=== PATIENT | female | born 1930 | race Caucasian/White ===

== ENCOUNTER 2016-08-11 13:24 | Inpatient (IN) | payer MEDICARE, BC ==
[~2016-08-11] VITALS: Ht 144.8 cm; Wt 59.0 kg
[~2016-08-11 13:24] MED LIST: AMBIEN PO; ATOR80TA PO; CLON0.1T PO; LOSA1TAB36 PO; TRAMADOL PO
[2016-08-11] MEDS ORDERED: ESZO3TAB10 PO (13:39)
[2016-08-11] MEDS ORDERED: ALPR1TAB2 PO (13:39)
[2016-08-11] MEDS ORDERED: AMLO1TAB65 PO (13:39)
[2016-08-11] MEDS ORDERED: ONDA4TAB8 PO (13:43)
[2016-08-11] MEDS ORDERED: ONDANSETRON 4 MG/2 ML VIAL IV ONE (14:00)
[2016-08-11] MEDS ORDERED: IV NORMAL SALINE 500 ML BAG IV ONE (14:00)
[2016-08-11 14:23] LABS: BASOPHILS % (AUTO) 0.3 % (0.0-2.0); EOSINOPHILS # (AUTO) 0.1 K/uL (0.0-0.7); EOSINOPHILS % (AUTO) 0.6 % (0.0-7.0); HEMATOCRIT 34.7 % (37.0-47.0); HEMOGLOBIN 12.1 g/dL (12.0-16.0); LYMPHOCYTES # (AUTO) 1.6 K/uL (0.8-4.8); LYMPHOCYTES % (AUTO) 17.7 % (20.5-51.5); MEAN CORPUSCULAR HEMOGLOBIN 31.2 uug (27.0-31.0); MEAN CORPUSCULAR HGB CONC 35 g/dL (32.0-37.0); MEAN CORPUSCULAR VOLUME 89.5 fL (81.0-99.0); MONOCYTES # (AUTO) 0.5 K/uL (0.1-1.30); MONOCYTES % (AUTO) 4.9 % (0.0-11.0); NEUTROPHILS # (AUTO) 7.1 K/uL (1.8-8.9); NEUTROPHILS % (AUTO) 76.5 % (38.5-71.5); PLATELET COUNT (AUTO) 212 K/uL (150-450); RED BLOOD CELL COUNT(AUTO) 3.87 MIL/uL (4.20-5.40); RED CELL DISTRIBUTION WIDTH 12.4 % (11.5-14.5); WHITE BLOOD COUNT (AUTO) 9.3 K/uL (4.0-11.2)
[2016-08-11] MEDS ORDERED: ONDANSETRON 4 MG/2 ML VIAL ONE (14:24)
--- NOTE | 2016-08-11 14:25 | NUR ---
PT IS IN ROOM #2A. DR MATIAS EVALUATED THE PT.
[2016-08-11 14:29] LABS: CALCIUM 9.5 mg/dL (8.5-10.1); CREATININE 1.1 mg/dL (0.6-1.3); POTASSIUM 4.3 mmol/L (3.5-5.1)
[2016-08-11 14:35] LABS: ALBUMIN 3.9 g/dL (3.4-5.0); BILIRUBIN,TOTAL 0.5 mg/dL (0.2-1.0)
[2016-08-11] MEDS ORDERED: IOHEXOL 300MG/ML 100 ML INFUS..BTL ONE (14:41)
[2016-08-11] MEDS ORDERED: IV NORMAL SALINE 250 ML IV ONE (14:41)
[2016-08-11 15:23] LABS: *BILIRUBIN,URIN NEGATIVE (NEGATIVE); *BLOOD, URINE 1+ (NEGATIVE); *CLARITY,URINE CLOUDY (CLEAR); *KETONES,URINE NEGATIVE (NEGATIVE); *PROTEIN,URINE 2+ (NEGATIVE); *UROBILINOGEN,URINE 0.2 E.U./dl (NORMAL); LEUKOCYTE ESTERASE ,URINE 2+ (NEGATIVE); NITRITE, URINE NEGATIVE (NEGATIVE); PH,URINE 5.5 (5.0-8.0); UGLUCOSE NEGATIVE (NEGATIVE)
[2016-08-11 15:47] LABS: *COLOR,URINE YELLOW (YELLOW); BACTERIA,URINE MANY /HPF (NONE SEEN); SQUAMOUS EPITHELIAL CELL,UR MODERATE /HPF (NONE SEEN); WBC,URINE 50-80 /HPF (0-3)
[2016-08-11 15:48] LABS: MUCUS,URINE MODERATE /LPF (0-FEW); URIC ACID CRYSTALS,URINE FEW /HPF (NONE SEEN)
[2016-08-11] MEDS ORDERED: METRONIDAZOLE 500 MG/NS 100 ML PIGGYBACK IV ONE (16:00)
[2016-08-11] MEDS ORDERED: CEFTRIAXONE 1 G in IV DEXTROSE 5% 50 ML IV ONE (16:00)
[2016-08-11] MEDS ORDERED: CEFTRIAXONE 1 G VIAL ONE (16:13)
[2016-08-11] MEDS ORDERED: METRONIDAZOLE 500 MG/NS 100ML 100 ML IV ONE (16:13)
--- NOTE | 2016-08-11 16:48 | NUR ---
REPORT WAS GIVEN TO JAVA MANAGER. PT WAS TRANSFERED TO TELEMETRY ROOM #209.
--- NOTE | 2016-08-11 17:00 | NUR ---
Received patient via gurney with 2 people assist from ER. V/s checked and recorded. patient alert and oriented person, place and time able to verbalize needs, breathing unlabored. Patient complained of pain on the left leg and hip and right eye. Will notify the MD.
[2016-08-11 18:00] VITALS: BP 145/80
--- NOTE | 2016-08-11 18:39 | NUR ---
Herrera LYNCH. Awaiting for Dr. Fairbanks's admitting orders.
--- NOTE | 2016-08-11 18:39 | NUR ---
Admitting orders received.
--- NOTE | 2016-08-11 18:52 | NUR ---
Admitting orders received for patient. T.O. orders faxed to pharmacy.
[2016-08-11] MEDS ORDERED: ALPRAZOLAM 0.5 MG TABLET PO PRN (19:30)
[2016-08-11 20:00] VITALS: BP 133/64
[2016-08-11] MEDS: ZOLPIDEM 5 MG TABLET PO PRN (20:17)
[2016-08-11] MEDS ORDERED: HOME MED MISCELLANEOUS PO SCH (21:00)
[2016-08-11] MEDS ORDERED: ZOLPIDEM 5 MG TABLET PO ONE (21:15)
[2016-08-11] MEDS ORDERED: ZOLPIDEM 5 MG TABLET ONE (21:22)
[2016-08-11] MEDS ORDERED: MORPHINE SULFATE 2 MG/1 ML DISP.SYRIN ONE (21:24)
[2016-08-11] MEDS: MORPHINE SULFATE 2 MG/1 ML DISP.SYRIN IV PRN (21:26)
[2016-08-12] VITALS: BP 139/66
[2016-08-12 04:00] VITALS: BP 137/63
--- NOTE | 2016-08-12 06:57 | NUR ---
END OF SHIFT NOTE: PT WAS GIVEN AMBIEN X 2 PER PT REQUEST.PT SLEPT INTERMITTENTLY AFTER. GIVEN MS PRN FOR C/O ABDOMINAL PAIN AND WAS HELPFUL. TURNED AND REPOSITIONED. SAFETY MAINTAINED. CALL LIGHT WITHIN REACH.
--- NOTE | 2016-08-12 07:10 | NUR ---
PT AWAKE IN BED, NO SIGNS OF DISTRESS, COMPLAINTS OF PAIN 8/10 IN ABDOMEN, WILL CHECK ORDERS FOR PAIN MEDICATION, ALL SAFETY AND COMFORT MEASURES ATTENDED TOO, CALL LIGHT IN REACH
[2016-08-12] MEDS: MORPHINE SULFATE 2 MG/1 ML DISP.SYRIN IV PRN ×2 (07:40→15:13)
[2016-08-12] MEDS ORDERED: HOME MED MISCELLANEOUS PO SCH (09:00)
--- NOTE | 2016-08-12 09:00 | NUR ---
DR CALLAWAY IN ROOM WITH PATIENT
[2016-08-12] MEDS: CEFTRIAXONE 1 G in IV DEXTROSE 5% 50 ML IV SCH (09:42)
[2016-08-12] MEDS: ENOXAPARIN SODIUM 30 MG/0.3 ML DISP.SYRIN SUBCUT SCH (09:42)
[2016-08-12] MEDS: LOSARTAN POTASSIUM 50 MG TABLET PO SCH (09:45)
[2016-08-12] MEDS: AMLODIPINE 10 MG TABLET PO SCH (09:45)
[2016-08-12] MEDS: METRONIDAZOLE 500 MG TABLET PO SCH ×3 (09:45→21:10)
[2016-08-12] MEDS: ALPRAZOLAM 0.5 MG TABLET PO PRN (11:51)
[2016-08-12 12:23] VITALS: BP 144/64
[2016-08-12] MEDS: ONDANSETRON ODT 4 MG TAB.RAPDIS SL PRN (14:50)
--- NOTE | 2016-08-12 14:54 | NUR ---
PT STATING VERY NAUSEATED, ZOFRAN GIVEN PER ORDERS, WILL CONTINUE TO MONITOR CLOSELY.
[2016-08-12 16:46] VITALS: BP 112/55
--- NOTE | 2016-08-12 18:00 | NUR ---
PT AWAKE IN BED, NO CHANGES NOTED THROUGHOUT SHIFT. ALL SAFETY AND COMFORT MEASURES MAINTAINED THROUGHOUT SHIFT. CALL LIGHT IN REACH
--- NOTE | 2016-08-12 19:00 | NUR ---
PATIENT ALERT ORIENTED, ABLE TO MAKE NEEDS KNOWN ASSIST TO BATHROOM FOR BLADDER ELIMINATIONS, COMPLAIN OF INSOMNIA, ASSESS FOR PAIN, NO COMPLAIN OF PAIN AT THIS TIME.
[2016-08-12 20:00] VITALS: BP 129/58
--- NOTE | 2016-08-12 20:12 | NUR ---
SEEN BY PSYCHIATRIST DR WAGNER.. WITH ORDER TRAZODONE FOR DEPRESSION,
[2016-08-12] MEDS: TRAZODONE 50 MG TABLET PO SCH (20:47)
[2016-08-12] MEDS: ZOLPIDEM 5 MG TABLET PO PRN (21:11)
[2016-08-13 04:00] VITALS: BP 121/56
[2016-08-13] MEDS: METRONIDAZOLE 500 MG TABLET PO SCH ×3 (05:37→21:02)
--- NOTE | 2016-08-13 05:46 | NUR ---
PATIENT AWAKE BUT FORGETFUL, SLEPT MOST OF THE NIGHT, GLORIAIEN PARTIALLY HELPS THE PATIENT, NO ADVERSE REACTION NOTED FROM ABX.
[2016-08-13 06:57] LABS: BASOPHILS % (AUTO) 0.3 % (0.0-2.0); EOSINOPHILS % (AUTO) 0.6 % (0.0-7.0); HEMATOCRIT 34.2 % (37.0-47.0); HEMOGLOBIN 11.4 g/dL (12.0-16.0); LYMPHOCYTES # (AUTO) 1.3 K/uL (0.8-4.8); LYMPHOCYTES % (AUTO) 19.2 % (20.5-51.5); MEAN CORPUSCULAR HEMOGLOBIN 29.9 uug (27.0-31.0); MEAN CORPUSCULAR HGB CONC 33 g/dL (32.0-37.0); MONOCYTES # (AUTO) 0.4 K/uL (0.1-1.30); MONOCYTES % (AUTO) 6.1 % (0.0-11.0); NEUTROPHILS # (AUTO) 5.1 K/uL (1.8-8.9); NEUTROPHILS % (AUTO) 73.8 % (38.5-71.5); PLATELET COUNT (AUTO) 210 K/uL (150-450); RED CELL DISTRIBUTION WIDTH 12.7 % (11.5-14.5)
[2016-08-13 07:05] LABS: WHITE BLOOD COUNT (AUTO) 6.8 K/uL (4.0-11.2)
[2016-08-13 07:21] LABS: ALBUMIN 3.4 g/dL (3.4-5.0); BILIRUBIN,TOTAL 0.4 mg/dL (0.2-1.0); CREATININE 0.9 mg/dL (0.6-1.3); PHOSPHOROUS 4.6 mg/dL (2.5-4.9); TOTAL PROTEIN, SERUM 7.2 g/dL (6.4-8.2)
[2016-08-13 07:33] LABS: CALCIUM 9.4 mg/dL (8.5-10.1)
[2016-08-13] MEDS: LOSARTAN POTASSIUM 50 MG TABLET PO SCH (08:09)
[2016-08-13] MEDS: AMLODIPINE 10 MG TABLET PO SCH (08:09)
[2016-08-13] MEDS: ENOXAPARIN SODIUM 30 MG/0.3 ML DISP.SYRIN SUBCUT SCH (08:10)
[2016-08-13] MEDS: CEFTRIAXONE 1 G in IV DEXTROSE 5% 50 ML IV SCH (08:11)
[2016-08-13] MEDS: ALPRAZOLAM 0.5 MG TABLET PO PRN (10:08)
[2016-08-13 11:40] VITALS: BP 119/62
[2016-08-13] MEDS: ONDANSETRON ODT 4 MG TAB.RAPDIS SL PRN ×2 (14:47→21:24)
[2016-08-13 15:38] VITALS: BP 123/62
[2016-08-13 19:00] VITALS: BP 128/64
--- NOTE | 2016-08-13 19:00 | NUR ---
PATIENT ALERT BUT FORGETFUL, NO SOB, NO CHEST PAIN, CONTINENT, AMBULATE WITH WALKER FOR BLADDER ELIMINATION, KEPT COMFORTABLE.
[2016-08-13] MEDS: TRAZODONE 50 MG TABLET PO SCH (20:19)
[2016-08-13] MEDS: ZOLPIDEM 5 MG TABLET PO PRN (21:02)
[2016-08-13] MEDS: MORPHINE SULFATE 2 MG/1 ML DISP.SYRIN IV PRN (21:58)
[2016-08-14 04:00] VITALS: BP 121/57
[2016-08-14] MEDS: METRONIDAZOLE 500 MG TABLET PO SCH ×3 (05:07→22:08)
--- NOTE | 2016-08-14 05:51 | NUR ---
PATIENT SLEPT MOST OF THE NIGHT, AMBULATE WITH WALKER FOR BLADDER ELIMINATIONS, PAIN MEDS EFFECTIVE, NO COMPLAIN OF PAIN NO SOB, NO CHEST , AFEBRILE CONTINUE TO MONITOR.
[2016-08-14] MEDS: AMLODIPINE 10 MG TABLET PO SCH (08:04)
[2016-08-14] MEDS: LOSARTAN POTASSIUM 50 MG TABLET PO SCH (08:04)
[2016-08-14] MEDS: ENOXAPARIN SODIUM 30 MG/0.3 ML DISP.SYRIN SUBCUT SCH (08:07)
[2016-08-14] MEDS: CEFTRIAXONE 1 G in IV DEXTROSE 5% 50 ML IV SCH (08:38)
[2016-08-14 09:48] LABS: *OCCULT BLOOD STOOL NEGATIVE (NEGATIVE)
[2016-08-14] MEDS: ALPRAZOLAM 0.5 MG TABLET PO PRN ×2 (09:57→23:20)
[2016-08-14 12:00] VITALS: BP 108/53
[2016-08-14 15:37] VITALS: BP 123/64
--- NOTE | 2016-08-14 19:00 | NUR ---
PATIENT IN BED ALERT BUT FORGETFUL, AMBULATE TO BATHROOM WTIH WALKER, EPISODES OF ANXIETY, WORRYING ABOUT NOT BE ABLE TO SLEEP AT NIGHT. REASSURE THAT AMBIEN WILL BE GIVEN LATER ON FOR SLEEP. NO SOB, NO CHEST PAIN NOTED, CONTINUE TO MONITOR
[2016-08-14 20:00] VITALS: BP 150/62
[2016-08-14] MEDS: ONDANSETRON ODT 4 MG TAB.RAPDIS SL PRN (20:08)
--- NOTE | 2016-08-14 20:19 | NUR ---
SEEN BY DR. WAGNER, WITH NEW ORDER, REPORTED TO MD THAT PATIENT STILL HAS EPISODES OF INSOMNIA, AND HAD EPISODES OF ANXIETY UNABLE TO REST AT NIGHT. ORDER NOTED AND CARRIED OUT.
[2016-08-14] MEDS ORDERED: TRAZODONE 100 MG TABLET ONE (20:24)
[2016-08-14] MEDS ORDERED: ALPRAZOLAM 0.5 MG TABLET ONE (20:25)
[2016-08-14] MEDS ORDERED: TRAZODONE 50 MG TABLET PO SCH (21:00)
[2016-08-14] MEDS: ZOLPIDEM 5 MG TABLET PO PRN (21:05)
[2016-08-14] MEDS: MORPHINE SULFATE 2 MG/1 ML DISP.SYRIN IV PRN (23:19)
[2016-08-15 04:00] VITALS: BP 126/62
[2016-08-15] MEDS: METRONIDAZOLE 500 MG TABLET PO SCH ×3 (05:11→21:17)
--- NOTE | 2016-08-15 05:21 | NUR ---
PATIENT AWAKE, ASSISTED TO THE BATHROOM FOR BLADDER ELIMINATION, NO FURTHER EPISODES OF ANXIETY, NO ADVERSE REACTION NOTED FROM XANAX, PATIENT COMPLAIN OF MILD DISCOMFORT OF THE ABDOMEN, NO CHEST PAIN NO SOB, NO S/S OF DISTRESS.
--- NOTE | 2016-08-15 07:40 | NUR ---
PT RECEIVED IN BED SLEEPING,NO C/O PAIN NOTED.V/S ARE STABLE.
[2016-08-15] MEDS: AMLODIPINE 10 MG TABLET PO SCH (08:02)
[2016-08-15] MEDS: LOSARTAN POTASSIUM 50 MG TABLET PO SCH (08:03)
[2016-08-15] MEDS: ENOXAPARIN SODIUM 30 MG/0.3 ML DISP.SYRIN SUBCUT SCH (08:05)
[2016-08-15] MEDS: CEFTRIAXONE 1 G in IV DEXTROSE 5% 50 ML IV SCH (08:09)
[2016-08-15] MEDS ORDERED: LIDOCAINE HCL 1% 20 ML VIAL MC ONE (10:21)
[2016-08-15] MEDS ORDERED: PROPOFOL 200 MG/20 ML BOTTLE IV ONE (10:21)
[2016-08-15 12:00] VITALS: BP 124/61
[2016-08-15] MEDS ORDERED: GOLYTELY 4000 ML BOTTLE PO ONE (12:15)
[2016-08-15] MEDS: ONDANSETRON ODT 4 MG TAB.RAPDIS SL PRN (12:26)
[2016-08-15 16:13] VITALS: BP 105/56
[2016-08-15 20:00] VITALS: BP 123/63
[2016-08-15] MEDS ORDERED: TEMAZEPAM 7.5 MG CAPSULE PO PRN (20:15)
[2016-08-15] MEDS: TRAZODONE 100 MG TABLET PO SCH (20:44)
[2016-08-16] MEDS: MORPHINE SULFATE 2 MG/1 ML DISP.SYRIN IV PRN (00:37)
--- NOTE | 2016-08-16 05:20 | NUR ---
Shift note: a/ox3 strauss. SUKHJINDER, pt is npo after mn. medicated for pain during night with good result. see emar for reassessment. Pt completed Golytely. 0500 am :Tap water enema give . clear return. Pt cleaned linen and gown changed. warm blanket given. Pt had unevetful night.
[2016-08-16 05:30] VITALS: BP 136/68
[2016-08-16] MEDS: METRONIDAZOLE 500 MG TABLET PO SCH ×3 (06:22→21:29)
--- NOTE | 2016-08-16 07:00 | NUR ---
PATIENT IN OR FOR COLONOSCOPY
[2016-08-16] MEDS: CEFTRIAXONE 1 G in IV DEXTROSE 5% 50 ML IV SCH (09:20)
[2016-08-16] MEDS: LOSARTAN POTASSIUM 50 MG TABLET PO SCH (09:21)
[2016-08-16] MEDS: AMLODIPINE 10 MG TABLET PO SCH (09:22)
[2016-08-16] MEDS: ENOXAPARIN SODIUM 30 MG/0.3 ML DISP.SYRIN SUBCUT SCH (09:23)
--- NOTE | 2016-08-16 09:30 | NUR ---
BACK FROM RECOVERY AWAKE ALERT AND ORIENTED X3, NO SIGNS OF DISTRESS
[2016-08-16 12:02] VITALS: BP 127/73
[2016-08-16 12:08] VITALS: BP 130/65
--- NOTE | 2016-08-16 12:35 | NUR ---
NO SIGNS OF PAIN OR DISTRESS TOLERATING ADA DIET
[2016-08-16] MEDS ORDERED: ZOLPIDEM 5 MG TABLET PO PRN (14:15)
[2016-08-16] MEDS: ONDANSETRON ODT 4 MG TAB.RAPDIS SL PRN (15:49)
--- NOTE | 2016-08-16 15:52 | NUR ---
C/O NAUSEA AND STOMACH UPSET PRN ZOFRAN GIVEN, OBSERVED
[2016-08-16 16:05] VITALS: BP 136/59
[2016-08-16 20:00] VITALS: BP 128/65
[2016-08-16] MEDS: TRAZODONE 100 MG TABLET PO SCH (20:26)
[2016-08-16] MEDS: ALPRAZOLAM 0.5 MG TABLET PO PRN (22:01)
[2016-08-17 04:00] VITALS: BP 134/68
[2016-08-17] MEDS: METRONIDAZOLE 500 MG TABLET PO SCH (06:47)
[2016-08-17] MEDS ORDERED: Trazodone Hcl PO (08:17)
[2016-08-17] MEDS ORDERED: AMPI500C11 PO (08:20)
[2016-08-17] MEDS: CEFTRIAXONE 1 G in IV DEXTROSE 5% 50 ML IV SCH (08:33)
[2016-08-17] MEDS: ENOXAPARIN SODIUM 30 MG/0.3 ML DISP.SYRIN SUBCUT SCH (08:34)
[2016-08-17] MEDS: AMLODIPINE 10 MG TABLET PO SCH (08:35)
[2016-08-17] MEDS: LOSARTAN POTASSIUM 50 MG TABLET PO SCH (08:35)
--- NOTE | 2016-08-17 09:00 | NUR ---
SEEN BY DR HAYNES WITH DC ORDER. ACCOUNTS PAYABLE REPRESENTATIVE AWARE AND SPOKE WITH DAUGHTER
[2016-08-17 12:03] VITALS: BP 127/64
--- NOTE | 2016-08-17 12:39 | NUR ---
RX AND FOLLOW-UP INSTRUCTION GIVEN BY PHARMACY. DAUGHTER NOTIFIED OF DC ORDER
--- NOTE | 2016-08-17 14:25 | NUR ---
DISCHARGED HOME ACCOMPANIED BY BO PINEDA
== END 2016-08-17 14:27 | disposition home or self-care (01) | DRG 392 ==
LOC: ER 13:24 → TELE 16:38 → MED 08-13 15:25
PROVIDERS: ADMIT Internal Medicine; ATTEND Internal Medicine
PROC: 0DBL8ZX Excision of Transverse Colon, Via Natural or Artificial Opening Endoscopic, Diagnostic (ICD-10-PCS; 2016-08-16)
PROC: 0DBH8ZX Excision of Cecum, Via Natural or Artificial Opening Endoscopic, Diagnostic (ICD-10-PCS; 2016-08-16)
PROC: 0DBK8ZX Excision of Ascending Colon, Via Natural or Artificial Opening Endoscopic, Diagnostic (ICD-10-PCS; principal; 2016-08-16 07:33)
DX: A09 Infectious gastroenteritis and colitis, unspecified (principal); N39.0 Urinary tract infection, site not specified; F33.9 Major depressive disorder, recurrent, unspecified; K57.30 Diverticulosis of large intestine without perforation or abscess without bleeding; E86.0 Dehydration; K64.9 Unspecified hemorrhoids; B96.20 Unspecified Escherichia coli [E. coli] as the cause of diseases classified elsewhere; K64.1 Second degree hemorrhoids; D12.2 Benign neoplasm of ascending colon; D12.0 Benign neoplasm of cecum; D12.3 Benign neoplasm of transverse colon; G20 Parkinson's disease; Z90.710 Acquired absence of both cervix and uterus; Z90.49 Acquired absence of other specified parts of digestive tract; R73.9 Hyperglycemia, unspecified
CPT/HCPCS: 36415; 51702; 70030-TC; 71010; 73502; 83690; 83735; 84100; 85025; 86625; 87046; 87077; 87086; 87177; 93005; 97001; 97116; 97530; A4217; A4663; C1758; J0696; J1650; J2270; J2405; J3490; J7040; J7050; J7060; Q0162; Q9967

== ENCOUNTER 2018-03-15 12:15 | Inpatient (IN) | payer MEDICARE, BC ==
[~2018-03-15] VITALS: Ht 144.8 cm; Wt 60.4 kg
[~2018-03-15 12:15] MED LIST changes: +ALPR1TAB2 PO; -AMBIEN PO; +AMLO1TAB42 PO; +AMPI500C11 PO; -ATOR80TA PO; -CLON0.1T PO; +ESZO3TAB27 PO; -LOSA1TAB36 PO; +ONDA4TAB8 PO; -TRAMADOL PO; +Trazodone Hcl PO
[2018-03-15] MEDS ORDERED: ATOR20TA PO (12:25)
--- NOTE | 2018-03-15 12:26 | NUR ---
Dr Yoo at the bedside for MSE.
[2018-03-15] MEDS ORDERED: [UNRECOGNIZED DRUG - REMARK] (12:27)
[2018-03-15] MEDS ORDERED: ONDANSETRON 4 MG/2 ML VIAL ONE (12:45)
[2018-03-15] MEDS ORDERED: IV NORMAL SALINE 1000 ML BAG IV ONE (12:45)
[2018-03-15] MEDS ORDERED: ONDANSETRON 4 MG/2 ML VIAL IV ONE (12:45)
[2018-03-15 13:04] LABS: BASOPHILS % (AUTO) 0.3 % (0.0-2.0); EOSINOPHILS % (AUTO) 0.2 % (0.0-7.0); HEMATOCRIT 34.5 % (31.2-41.9); LYMPHOCYTES # (AUTO) 1.9 K/uL (20.0-40.0); LYMPHOCYTES % (AUTO) 20.7 % (20.5-51.5); MEAN CORPUSCULAR HEMOGLOBIN 32.3 uug (24.7-32.8); MEAN CORPUSCULAR HGB CONC 35 g/dL (32.3-35.6); MEAN CORPUSCULAR VOLUME 92.9 fL (75.5-95.3); MONOCYTES # (AUTO) 0.5 K/uL (2.0-10.0); MONOCYTES % (AUTO) 5.9 % (0.0-11.0); NEUTROPHILS # (AUTO) 6.5 K/uL (1.8-8.9); NEUTROPHILS % (AUTO) 72.9 % (38.5-71.5); PLATELET COUNT (AUTO) 204 K/uL (179-408); RED BLOOD CELL COUNT(AUTO) 3.71 MIL/uL (3.63-4.92)
[2018-03-15 13:12] LABS: CARBON DIOXIDE 28 mmol/L (21-32); CHLORIDE 103 mmol/L (98-107); CREATININE 1.1 mg/dL (0.6-1.3); GLUCOSE 119 mg/dL (74-106); POTASSIUM 3.9 mmol/L (3.5-5.1); UREA NITROGEN, BLOOD 28 mg/dL (7-18)
[2018-03-15 13:17] LABS: ALANINE AMINOTRANSFERASE 27 U/L (14-59); ALKALINE PHOSPHATASE 64 U/L (50-136); ASPARTATE AMINOTRANSFERASE 17 U/L (15-37); BILIRUBIN,DIRECT 0.1 mg/dL (0.0-0.2); BILIRUBIN,TOTAL 0.7 mg/dL (0.2-1.0); LIPASE 148 U/L (73-393)
[2018-03-15] MEDS ORDERED: METOCLOPRAMIDE HCL 10 MG/2 ML VIAL ONE (13:33)
[2018-03-15] MEDS ORDERED: METOCLOPRAMIDE HCL 10 MG/2 ML VIAL IV ONE (13:45)
[2018-03-15 14:00] LABS: *BILIRUBIN,URIN NEGATIVE (NEGATIVE); *BLOOD, URINE NEGATIVE (NEGATIVE); *CLARITY,URINE CLEAR (CLEAR); *COLOR,URINE YELLOW (YELLOW); *KETONES,URINE NEGATIVE (NEGATIVE); *PROTEIN,URINE NEGATIVE (NEGATIVE); *UROBILINOGEN,URINE 0.2 E.U./dl (NORMAL); LEUKOCYTE ESTERASE ,URINE NEGATIVE (NEGATIVE); NITRITE, URINE NEGATIVE (NEGATIVE); UGLUCOSE NEGATIVE (NEGATIVE)
[2018-03-15] MEDS ORDERED: ENOXAPARIN SODIUM 40 MG/0.4 ML DISP.SYRIN SQ SCH (14:15)
[2018-03-15] MEDS ORDERED: Z GUARD REMEDY PASTE 57 GM TUBE TOP PRN (14:15)
[2018-03-15] MEDS ORDERED: MAGNESIUM HYDROXIDE 30 ML LIQUID UDC PO PRN (14:15)
--- NOTE | 2018-03-15 16:00 | NUR ---
RECEIVED PT FROM ER VIA RMARTHA. PT IS ALERT, IN NO DISTRESS. PT RECEIVED BY LABORER [employer]. DX: INTRACTIBLE PAIN ADMITTED TO TELE UNDER THE CARE OF DR. WENDY ROJAS. ADMISSION PROCESS, CARE PLAN AND BELONGING LIST DONE. MD NOTIFIED OF NEW ADMISSION ORDERS.
[2018-03-15 16:04] VITALS: BP 177/55
[2018-03-15] MEDS: ONDANSETRON 4 MG/2 ML VIAL IV PRN (17:47)
[2018-03-15] MEDS: IV D5 1/2 NS 1000 ML 1,000 ML IV PRN (17:48)
--- NOTE | 2018-03-15 17:56 | NUR ---
Pt's BP 167/54 HR 64. notified, no new orders received at this time.
[2018-03-15 17:57] VITALS: BP 167/54
--- NOTE | 2018-03-15 18:00 | NUR ---
Patient refused to turn over valuables and paul approx $300 for safekeeping. Patient prefers to keep valuables with her. Patient verbalized understanding regarding hospital having no liability against loss of valuables/paul.
[2018-03-15] MEDS: HYDROCODONE/APAP 5-325MG TABLET PO PRN ×2 (18:50→23:50)
[2018-03-15] MEDS ORDERED: IBUPROFEN 600 MG TABLET PO PRN (19:00)
[2018-03-15] MEDS: ENOXAPARIN SODIUM 30 MG/0.3 ML DISP.SYRIN SUBCUT SCH (20:05)
[2018-03-15] MEDS: TRAZODONE 100 MG TABLET PO SCH (20:06)
[2018-03-15] MEDS: LISINOPRIL 20 MG TABLET PO SCH (20:07)
[2018-03-15] MEDS: ATORVASTATIN 20 MG TABLET PO SCH (20:07)
[2018-03-15 20:15] VITALS: BP 171/66
[2018-03-15] MEDS ORDERED: TRAZODONE 50 MG TABLET PO SCH (21:00)
--- NOTE | 2018-03-15 22:19 | NUR ---
Patient continuously pressing call light asking for sleeping pill although she already took it. I told patient to stop looking at the clock and tried relaxation techniques to go to sleep. Pt eyes are red and she looks very tired but also very anxious and keep referring to the clock and how much time has passed since she took her sleep meds and stating its not working. I gave pt a warm blanket, turned off all lights and closed the blinds, gave her an eye mask to help sleep. Patient still awake and stating she can't sleep. At this time we gave her a warm drink and changed her diaper. Will continue to monitor and try other interventions.
[2018-03-16 00:04] VITALS: BP 143/41
[2018-03-16 04:44] VITALS: BP 141/51
[2018-03-16 06:10] LABS: CARBON DIOXIDE 24 mmol/L (21-32); CHLORIDE 106 mmol/L (98-107); CHOLESTEROL 166 mg/dL (<200); CREATININE 1.1 mg/dL (0.6-1.3); GLUCOSE 103 mg/dL (74-106); HDL CHOLESTEROL 45 mg/dL (40-60); MAGNESIUM 2.1 mg/dL (1.8-2.4); PHOSPHOROUS 4.4 mg/dL (2.5-4.9); POTASSIUM 4.2 mmol/L (3.5-5.1); TRIGLYCERIDES 217 MG/DL (30-150); UREA NITROGEN, BLOOD 22 mg/dL (7-18)
[2018-03-16 06:17] LABS: BASOPHILS % (AUTO) 0.4 % (0.0-2.0); EOSINOPHILS # (AUTO) 0.1 K/uL (0.0-0.7); HEMATOCRIT 32.9 % (31.2-41.9); HEMOGLOBIN 11.3 g/dL (10.9-14.3); LYMPHOCYTES # (AUTO) 2.2 K/uL (20.0-40.0); LYMPHOCYTES % (AUTO) 33.2 % (20.5-51.5); MEAN CORPUSCULAR HEMOGLOBIN 31.5 uug (24.7-32.8); MEAN CORPUSCULAR HGB CONC 34 g/dL (32.3-35.6); MEAN CORPUSCULAR VOLUME 91.5 fL (75.5-95.3); MONOCYTES # (AUTO) 0.4 K/uL (2.0-10.0); MONOCYTES % (AUTO) 6.6 % (0.0-11.0); NEUTROPHILS # (AUTO) 3.9 K/uL (1.8-8.9); NEUTROPHILS % (AUTO) 58.8 % (38.5-71.5); PLATELET COUNT (AUTO) 190 K/uL (179-408); WHITE BLOOD COUNT (AUTO) 6.6 K/uL (3.8-11.8)
[2018-03-16 06:19] LABS: THYROID STIMULATING HORMONE 2.659 mIU/mL (0.358-3.740)
--- NOTE | 2018-03-16 06:50 | NUR ---
Pt sleeps for 2-3 hours then wakes up stating she hasn't slept at all. Provided comfort measures to promote sleep. Pain well-controlled. No nausea or vomiting throughout the night.
[2018-03-16] MEDS: LISINOPRIL 20 MG TABLET PO SCH ×2 (08:45→20:10)
[2018-03-16] MEDS: ONDANSETRON 4 MG/2 ML VIAL IV PRN ×2 (08:51→15:45)
[2018-03-16] MEDS ORDERED: PANTOPRAZOLE SODIUM 40 MG VIAL IV SCH (09:00)
[2018-03-16 11:16] VITALS: BP 120/50
[2018-03-16 15:23] VITALS: BP 125/55
[2018-03-16] MEDS: ACETAMINOPHEN 325 MG TABLET PO PRN (15:45)
--- NOTE | 2018-03-16 16:01 | NUR ---
medicated for toe pain right foot and also for nausea. IV site infiltrated. IV 20 insereted via left hand. KUB done at the bedside. tele dc/d Addendum: 03/16/18 at 1601 by DAWIT LOPEZ RN Amended: Links added.
[2018-03-16] MEDS: IV D5 1/2 NS 1000 ML 1,000 ML IV PRN (17:58)
--- NOTE | 2018-03-16 19:14 | NUR ---
SHIFT REPORT given to Renea RN Addendum: 03/16/18 at 1914 by DAWIT LOPEZ RN Amended: Links added.
[2018-03-16 19:34] VITALS: BP 153/33
[2018-03-16] MEDS: ZOLPIDEM 5 MG TABLET PO PRN (20:10)
[2018-03-16] MEDS: TRAZODONE 100 MG TABLET PO SCH (20:10)
[2018-03-16] MEDS: ATORVASTATIN 20 MG TABLET PO SCH (20:10)
[2018-03-16] MEDS: ENOXAPARIN SODIUM 30 MG/0.3 ML DISP.SYRIN SUBCUT SCH (20:13)
[2018-03-17 03:33] VITALS: BP 130/55
[2018-03-17 06:36] LABS: BASOPHILS % (AUTO) 0.5 % (0.0-2.0); EOSINOPHILS % (AUTO) 0.8 % (0.0-7.0); HEMOGLOBIN 11.1 g/dL (10.9-14.3); LYMPHOCYTES # (AUTO) 1.7 K/uL (20.0-40.0); LYMPHOCYTES % (AUTO) 30.3 % (20.5-51.5); MEAN CORPUSCULAR HEMOGLOBIN 31.9 uug (24.7-32.8); MEAN CORPUSCULAR HGB CONC 35 g/dL (32.3-35.6); MEAN CORPUSCULAR VOLUME 91.9 fL (75.5-95.3); MONOCYTES # (AUTO) 0.4 K/uL (2.0-10.0); MONOCYTES % (AUTO) 7.3 % (0.0-11.0); NEUTROPHILS # (AUTO) 3.5 K/uL (1.8-8.9); NEUTROPHILS % (AUTO) 61.1 % (38.5-71.5); PLATELET COUNT (AUTO) 172 K/uL (179-408); RED BLOOD CELL COUNT(AUTO) 3.48 MIL/uL (3.63-4.92); WHITE BLOOD COUNT (AUTO) 5.7 K/uL (3.8-11.8)
[2018-03-17 07:06] LABS: ALANINE AMINOTRANSFERASE 22 U/L (14-59); ALKALINE PHOSPHATASE 61 U/L (50-136); ASPARTATE AMINOTRANSFERASE 20 U/L (15-37); CARBON DIOXIDE 25 mmol/L (21-32); CHLORIDE 110 mmol/L (98-107); GLUCOSE 96 mg/dL (74-106); MAGNESIUM 2.2 mg/dL (1.8-2.4); PHOSPHOROUS 3.9 mg/dL (2.5-4.9); POTASSIUM 3.8 mmol/L (3.5-5.1); TOTAL PROTEIN, SERUM 6.6 g/dL (6.4-8.2); UREA NITROGEN, BLOOD 16 mg/dL (7-18)
[2018-03-17] MEDS: LISINOPRIL 20 MG TABLET PO SCH ×2 (08:23→20:02)
[2018-03-17] MEDS: PANTOPRAZOLE SODIUM 40 MG TABLET.DR PO SCH (08:24)
[2018-03-17] MEDS: ACETAMINOPHEN 325 MG TABLET PO PRN ×3 (08:25→20:01)
[2018-03-17 11:11] VITALS: BP 145/57
--- NOTE | 2018-03-17 15:00 | NUR ---
PRODUCER ASSISTANT FOUND OPEN LESION TO RIGHT LOVER ABDOMEN. PATIENT STATED SHE IS IN THE HABIT OF PICKING AT THE SCAB AND SCRATCHING IT OFF. WOUND SITE CLEANED AND COVERED WITH BORDER GAUZE. PHOTO TAKEN OF THE WOUND SITE AND PLACED IN CHART.
[2018-03-17 15:03] VITALS: BP 160/60
--- NOTE | 2018-03-17 17:45 | NUR ---
PATIENT'S BP 163/51 HR 65. MD ORDERS TAKEN AND CARRIED OUT.
[2018-03-17] MEDS: hydrALAZINE HCL 25 MG TABLET PO PRN (18:26)
--- NOTE | 2018-03-17 18:26 | NUR ---
PT DENIES N/V TODAY. PATIENT GIVEN PRUNE JUICE TODAY DUE TO CONSTIPATION. PT HAD BOWEL MOVEMENT TIMES 4 TODAY GI MD AWARE. PATIENT ASSISTED TO BATHROOM WITH STAFF AND WALKER. BED ALARM ON. PATIENT EDUCATED REGARDING SAFETY AND NEED TO CALL FOR ASSIST. IV IN PLACE TO RT. FOREARM. IV SITE C/D/I WITH NO SIGNS OF INFILTRATION. IV FLUIDS D51/2 NS AT 75CC/HR.
[2018-03-17] MEDS: IV D5 1/2 NS 1000 ML 1,000 ML IV PRN (18:56)
[2018-03-17 19:21] VITALS: BP 144/55
--- NOTE | 2018-03-17 20:00 | NUR ---
Received patient laying comfortably on the bed. No acute distress noted. Denies SOB and pain. A/O x 3. [facility] assessment done. Assisted patient to the restroom. Patient is ambulatory with FWW. Skin intact. IVF infusing on the right FA. Patent and intact. Safety initiated. Call light within reach. Bed in low and locked position. Bed alarm on. Will closely monitor.
[2018-03-17] MEDS: ATORVASTATIN 20 MG TABLET PO SCH (20:01)
[2018-03-17] MEDS: TRAZODONE 100 MG TABLET PO SCH (20:01)
[2018-03-17] MEDS: ENOXAPARIN SODIUM 30 MG/0.3 ML DISP.SYRIN SUBCUT SCH (20:06)
[2018-03-17] MEDS: ZOLPIDEM 5 MG TABLET PO PRN (21:36)
[2018-03-18 03:28] VITALS: BP 157/63
--- NOTE | 2018-03-18 05:04 | NUR ---
No changes t/o shift. Remains in stable condition. Safety and comfort measures maintained t/o shift. Good urine output. Vital signs stable. All meds given as ordered. All needs met.
[2018-03-18] MEDS: PANTOPRAZOLE SODIUM 40 MG TABLET.DR PO SCH (06:11)
[2018-03-18] MEDS: ONDANSETRON 4 MG/2 ML VIAL IV PRN (08:40)
[2018-03-18] MEDS: LISINOPRIL 20 MG TABLET PO SCH (08:46)
[2018-03-18] MEDS: hydrALAZINE HCL 25 MG TABLET PO PRN ×2 (09:59→16:10)
[2018-03-18] MEDS: ACETAMINOPHEN 325 MG TABLET PO PRN (11:03)
[2018-03-18 11:42] VITALS: BP 165/60
[2018-03-18] MEDS ORDERED: ENOX30DI SUBCUT (13:00)
[2018-03-18] MEDS ORDERED: LISI-603 PO (13:00)
[2018-03-18] MEDS ORDERED: PANT40TA2 PO (13:00)
[2018-03-18 15:09] VITALS: BP 174/60
[2018-03-18 16:10] VITALS: BP 160/65
--- NOTE | 2018-03-18 16:30 | NUR ---
pt sent down stairs to ARU rehab report given to Eugenio LIANG. Pt is in no acute distress upon discharge. Pt still c/o pain on stomach. Pt currently tolerating full liquid diet. IV d/c. Pt refused to have pictures taken.
[2018-03-18] MEDS ORDERED: ESZO3TAB27 PO (18:59)
== END 2018-03-18 16:30 | DRG 391 ==
LOC: ER 12:15 → TELE 15:03 → MED 03-16 15:20
PROVIDERS: ADMIT Internal Medicine; ATTEND Internal Medicine
DX: K29.70 Gastritis, unspecified, without bleeding (principal); R53.2 Functional quadriplegia; E86.0 Dehydration; I10 Essential (primary) hypertension; F32.9 Major depressive disorder, single episode, unspecified; F41.9 Anxiety disorder, unspecified; K59.00 Constipation, unspecified; Z90.710 Acquired absence of both cervix and uterus; Z96.642 Presence of left artificial hip joint; Z90.49 Acquired absence of other specified parts of digestive tract; E78.5 Hyperlipidemia, unspecified; R73.9 Hyperglycemia, unspecified
CPT/HCPCS: 36415; 70030-TC; 71045; 73521; 74018; 83690; 83735; 84100; 84443; 85025; 85730; 93005; A4663; C9113; J1650; J2405; J2765; J3490; J7030

== ENCOUNTER 2018-03-18 18:37 | Inpatient (IN) | payer MEDICARE, BC ==
[~2018-03-18] VITALS: Ht 144.8 cm; Wt 60.4 kg
[~2018-03-18 18:37] MED LIST changes: -ALPR1TAB2 PO; -AMLO1TAB42 PO; +ATOR20TA PO; +ENOX30DI SUBCUT; -ESZO3TAB27 PO; +LISI-603 PO; -ONDA4TAB8 PO; +PANT40TA2 PO; +[UNRECOGNIZED DRUG - REMARK]
[2018-03-18] MEDS ORDERED: ESZO3TAB27 PO (18:59)
--- NOTE | 2018-03-18 19:39 | NUR ---
Dr. Noin Cazares called back with new orders noted and carried out.
--- NOTE | 2018-03-18 19:55 | NUR ---
Admit patient from [facility] with admitting DX: General weakness. Routine admission care done. Plan of care initiated.
[2018-03-18 20:00] VITALS: BP 149/58
--- NOTE | 2018-03-18 20:05 | NUR ---
Dr Osuna here seen and evaluated patient with new orders noted and carried out.
[2018-03-18] MEDS ORDERED: METHYL SALICYLATE/MENTHOL CREAM 28 GM TUBE TOP PRN (20:30)
[2018-03-18] MEDS: HYDROCODONE/APAP 5-325MG TABLET PO PRN (21:37)
--- NOTE | 2018-03-18 21:40 | NUR ---
Medicated for right toe pain in scale of 10/10 as ordered and needed. Will monitor.
[2018-03-18] MEDS: TEMAZEPAM 15 MG CAPSULE PO PRN (22:38)
--- NOTE | 2018-03-19 05:37 | NUR ---
Shift end report: Slept well after pain medication and followed by sleeping pill when pain meds ineffective . Close visual and physical supervison rendered. No fall/injury. Safety measure and fall precaution maintained. No significant event reported. All needs attended and met. Continue care as planned.
[2018-03-19 05:57] VITALS: BP 159/53
[2018-03-19 08:00] VITALS: BP 174/64
[2018-03-19] MEDS: PANTOPRAZOLE SODIUM 40 MG TABLET.DR PO SCH (09:01)
[2018-03-19] MEDS: LISINOPRIL 20 MG TABLET PO SCH ×2 (09:02→20:53)
--- NOTE | 2018-03-19 09:55 | NUR ---
Received pt. in bed lying comfortable. A/Ox3 and able to make her needs known. Denies pain or discomfort at this time. All due AM medications given and tolerated well. Pt. [place] bilateral ear, uses hearing aids. All safety measures and fall precaution in placed. Call light and all frequently used items in place.
[2018-03-19] MEDS: AMLODIPINE 5 MG TABLET PO SCH (14:21)
[2018-03-19] MEDS: HYDROCODONE/APAP 5-325MG TABLET PO PRN ×2 (15:08→20:55)
[2018-03-19 15:55] VITALS: BP 157/78
--- NOTE | 2018-03-19 19:28 | NUR ---
End of shift note: Pt. continued to c/o pain on Rt. 3rd to 4th digit. PRN [place] administered as ordered. Muscle rub applied to RT foot for pain mgt and effective. Pt. seen by membership sales manager today with order for RT. foot x-ray. Dr. Osuna came and evaluated pt. with no new order. Pt. denies of CP or SOB. No new skin condition noted. Dr. Murphy seen pt. as well, notified MD pt. BP in 170s, received new order for Amlodipine. Call light and all frequently used items in reach. Will endorse to oncoming shift.
[2018-03-19 20:00] VITALS: BP 150/63
--- NOTE | 2018-03-19 20:10 | NUR ---
Patient received at bed. AAO X3, but sometimes forgetful. Able to make needs known. Verbally responsive appropriately. No sign of acute distress or SOB was noted. On room air, O2 sat 94%. V/S was checked and brief assessment was done. All safety measures maintained. Bed is on low position, brake and alarm are on. Call light and personal belongings within reach. Continue to monitor
[2018-03-19] MEDS: TRAZODONE 100 MG TABLET PO SCH (20:50)
[2018-03-19] MEDS: ATORVASTATIN 20 MG TABLET PO SCH (20:53)
[2018-03-19] MEDS: ENOXAPARIN SODIUM 30 MG/0.3 ML DISP.SYRIN SUBCUT SCH (21:11)
[2018-03-19] MEDS: TEMAZEPAM 15 MG CAPSULE PO PRN (21:50)
[2018-03-20] MEDS: PANTOPRAZOLE SODIUM 40 MG TABLET.DR PO SCH (06:26)
[2018-03-20] MEDS: HYDROCODONE/APAP 5-325MG TABLET PO PRN ×3 (06:27→22:17)
[2018-03-20 06:46] VITALS: BP 130/47
--- NOTE | 2018-03-20 07:07 | NUR ---
End of shift note, Patient remained stable throughout the shift. No acute distress or SOB was noted. Pain assessed and reassessed after pain medication. All needs attended promptly. Assisted her to use bedside commode every time patient needed. Muscle rub was applied to her toes. Safety measures maintained. Keep her clean and comfortable. Bed in low position, alarm and brake on. Call light and personal belongings within reach. Continue to monitor and will endorse to day shift nurse.
[2018-03-20] MEDS: LISINOPRIL 20 MG TABLET PO SCH ×2 (08:27→20:51)
[2018-03-20] MEDS: AMLODIPINE 5 MG TABLET PO SCH (08:27)
--- NOTE | 2018-03-20 10:04 | NUR ---
SBAR report received, board updated. Pt assessed, no acute distress or SOB. CPM removed. Pt compliant with all routine morning medication administration. Cooperative with therapies as offered. Pt teaching reviewed to use call light for assistance with toileting needs. Assisted to bedside commode for voiding, dressed, and teeth brushed. All comfort and safety needs met. Call light within reach. Will continue to monitor.
--- NOTE | 2018-03-20 19:00 | NUR ---
Received patient in bed, awake, not in distress. Denies any pain/discomforts at this time. Safety measure and fall precaution maintained. Continue care as planned.
[2018-03-20 20:38] VITALS: BP 129/67
[2018-03-20 20:39] VITALS: BP 101/54
[2018-03-20] MEDS: TRAZODONE 100 MG TABLET PO SCH (20:50)
[2018-03-20] MEDS: TEMAZEPAM 15 MG CAPSULE PO PRN (20:50)
[2018-03-20] MEDS: ATORVASTATIN 20 MG TABLET PO SCH (20:50)
[2018-03-20] MEDS: ENOXAPARIN SODIUM 30 MG/0.3 ML DISP.SYRIN SUBCUT SCH (20:56)
[2018-03-21 05:32] VITALS: BP 130/67
[2018-03-21] MEDS: PANTOPRAZOLE SODIUM 40 MG TABLET.DR PO SCH (05:58)
--- NOTE | 2018-03-21 06:44 | NUR ---
Shift End Report: Vs stable. No fall/injury. Medicated for pain once, effective, No further complaint presented. All needs attended and met. Safety measure and fall precaution maintained. No significant event reported. Continue care as planned.
[2018-03-21] MEDS: LISINOPRIL 20 MG TABLET PO SCH ×2 (10:05→21:37)
[2018-03-21] MEDS: AMLODIPINE 5 MG TABLET PO SCH (10:06)
--- NOTE | 2018-03-21 11:08 | NUR ---
Received patient awake in bed in stable condition. Continue therapy for ambulation and unsteady gait. not in distress. Continue on pain management. no complaint of pain/discomfort. will continue monitor
[2018-03-21] MEDS: DULOXETINE 30 MG CAPSULE.DR PO SCH (11:45)
[2018-03-21] MEDS: HYDROCODONE/APAP 5-325MG TABLET PO PRN (15:00)
[2018-03-21 16:45] VITALS: BP 128/47
[2018-03-21] MEDS ORDERED: TRIAMCINOLONE ACETONIDE 40 MG/1 ML VIAL IM PRN (18:00)
[2018-03-21] MEDS ORDERED: LIDOCAINE HCL 1% 20 ML VIAL IJ PRN (18:00)
--- NOTE | 2018-03-21 19:45 | NUR ---
Received pt in bed, AAO x 2-3, watching television. No acute distress noted. Verbally responsive and able to make needs known. Denies pain or discomfort at this time. All safety measures and fall precautions maintained. Call light and all personal belongings within reach. Will continue to monitor.
[2018-03-21 20:45] VITALS: BP 143/63
[2018-03-21] MEDS: TEMAZEPAM 15 MG CAPSULE PO PRN (21:36)
[2018-03-21] MEDS: TRAZODONE 100 MG TABLET PO SCH (21:37)
[2018-03-21] MEDS: ATORVASTATIN 20 MG TABLET PO SCH (21:37)
[2018-03-21] MEDS: ENOXAPARIN SODIUM 30 MG/0.3 ML DISP.SYRIN SUBCUT SCH (21:41)
[2018-03-22] MEDS: PANTOPRAZOLE SODIUM 40 MG TABLET.DR PO SCH (06:19)
[2018-03-22 06:59] VITALS: BP 144/58
[2018-03-22] MEDS: DULOXETINE 30 MG CAPSULE.DR PO SCH (08:56)
[2018-03-22] MEDS: AMLODIPINE 5 MG TABLET PO SCH (08:56)
[2018-03-22] MEDS: LISINOPRIL 20 MG TABLET PO SCH ×2 (08:57→21:29)
--- NOTE | 2018-03-22 13:50 | NUR ---
SBAR report received, board updated. VSS. Pt assessed, no acute distress, pain, or SOB. Pt compliant with morning administration of medications. Pt assisted to bedside commode for voiding, administered warmed prune juice for c/o constipation. No BM. Personal items and call light placed within reach. Bed in locked and lowest position, with side rails up x2. Bed alarm on. All comfort and safety measures inplace. Will continue to monitor.
[2018-03-22 17:23] VITALS: BP 136/55
--- NOTE | 2018-03-22 19:46 | NUR ---
Received pt in bed, appearing to be asleep but easily arousable to verbal stimuli and light touch. No acute distress noted. Verbally responsive and able to make needs known. Denies pain or discomfort at this time. All safety measures and fall precautions maintained. Call light and all personal belongings within reach. Will continue to monitor.
[2018-03-22 20:23] VITALS: BP 150/57
[2018-03-22] MEDS: TRAZODONE 100 MG TABLET PO SCH (21:29)
[2018-03-22] MEDS: ATORVASTATIN 20 MG TABLET PO SCH (21:29)
[2018-03-22] MEDS: TEMAZEPAM 15 MG CAPSULE PO PRN (21:29)
[2018-03-22] MEDS: ENOXAPARIN SODIUM 30 MG/0.3 ML DISP.SYRIN SUBCUT SCH (21:34)
[2018-03-23 06:07] VITALS: BP 118/61
[2018-03-23] MEDS: PANTOPRAZOLE SODIUM 40 MG TABLET.DR PO SCH (06:21)
[2018-03-23 08:00] VITALS: BP 171/52
--- NOTE | 2018-03-23 08:05 | NUR ---
Received patient, awake, alert x4. Not in any form of distress. No vomiting, dizziness, chest pain or SOB noted. Assisted to bedside commode. Morning care done, Rosenda-care done.
--- NOTE | 2018-03-23 09:18 | NUR ---
Up with occupational therapy. Tolerating therapy well. No complaints of pain noted.
[2018-03-23] MEDS: AMLODIPINE 5 MG TABLET PO SCH (09:29)
[2018-03-23] MEDS: DULOXETINE 30 MG CAPSULE.DR PO SCH (09:29)
[2018-03-23] MEDS: LISINOPRIL 20 MG TABLET PO SCH ×2 (09:30→21:15)
[2018-03-23 15:53] VITALS: BP 158/58
[2018-03-23 20:00] VITALS: BP 138/60
[2018-03-23] MEDS: ATORVASTATIN 20 MG TABLET PO SCH (21:15)
[2018-03-23] MEDS: TRAZODONE 100 MG TABLET PO SCH (21:15)
[2018-03-23] MEDS: TEMAZEPAM 15 MG CAPSULE PO PRN (21:16)
[2018-03-23] MEDS: ENOXAPARIN SODIUM 30 MG/0.3 ML DISP.SYRIN SUBCUT SCH (21:18)
[2018-03-24 04:30] VITALS: BP 136/50
--- NOTE | 2018-03-24 04:53 | NUR ---
awake alert and oriented.OOB to bedside commode. voiding well. needs attended. kept comfortable. possible discharge to home today. no acute distress noted.
[2018-03-24] MEDS: PANTOPRAZOLE SODIUM 40 MG TABLET.DR PO SCH (06:10)
[2018-03-24 08:00] VITALS: BP 139/47
--- NOTE | 2018-03-24 08:26 | NUR ---
SBAR report received, board updated. Pt assessed, no acute distress or SOB noted at this time. Pt received resting in bed, eating breakfast. Plan for today discussed, including discharge. Bed in locked and lowest position, with side rails up x2, bed alarm on. Call light and personal belongings placed within reach. All comfort and safety measures implemented. Will continue to monitor.
[2018-03-24] MEDS: AMLODIPINE 5 MG TABLET PO SCH (08:40)
[2018-03-24] MEDS: DULOXETINE 30 MG CAPSULE.DR PO SCH (08:40)
[2018-03-24 08:41] VITALS: BP 139/47
[2018-03-24] MEDS: LISINOPRIL 20 MG TABLET PO SCH (08:41)
--- NOTE | 2018-03-24 13:00 | NUR ---
Discharge orders received. Pt education material and discharge paperwork completed, reviewed, and signed, copies placed in chart and originals given to Pt. VIP , Dr. Nogueira contacted for TMS medication recon, TORB for all medications to be continued at discharge, excluding Lovenox 30mg and [place] 5-325mg. Pt refused skin integrity photos of scab to abdomen. Belongings accounted for and list signed. All discharge concerns addressed. No home medications to return. ID band removed. Pt safely transferred via wheelchair to private vehicle with friend driving. Will remove from system shortly.
== END 2018-03-24 13:00 | disposition home health service (06) | DRG 947 ==
PROVIDERS: ADMIT Internal Medicine; ATTEND Physical Medicine & Rehabilitation Pain Medicine
DX: R53.81 Other malaise (principal); R53.2 Functional quadriplegia; E78.5 Hyperlipidemia, unspecified; G20 Parkinson's disease; I10 Essential (primary) hypertension; Z90.710 Acquired absence of both cervix and uterus; R29.6 Repeated falls; Z91.81 History of falling; R53.1 Weakness; Z90.49 Acquired absence of other specified parts of digestive tract; F32.9 Major depressive disorder, single episode, unspecified; R26.9 Unspecified abnormalities of gait and mobility; F41.9 Anxiety disorder, unspecified; G89.29 Other chronic pain; M20.41 Other hammer toe(s) (acquired), right foot; M19.90 Unspecified osteoarthritis, unspecified site; K59.00 Constipation, unspecified; R26.2 Difficulty in walking, not elsewhere classified; R73.9 Hyperglycemia, unspecified; R79.89 Other specified abnormal findings of blood chemistry; Z88.8 Allergy status to other drugs, medicaments and biological substances; Z91.013 Allergy to seafood
CPT/HCPCS: 73630; 92526; 92610; 97110; 97112; 97116; 97530; 97535; J1650; J3301; J3490